=== PATIENT | female | born 1960 | race Caucasian/White ===

== ENCOUNTER 2020-09-18 06:31 | Observation (INO) ==
[2020-09-18] MEDS ORDERED: *HR* OxyCODONE Immed Rel 5 MG TABLET PO PRN (06:44)
[2020-09-18] MEDS ORDERED: Ondansetron 4 MG/2 ML VIAL IVP PRN ×2 (06:44→12:55)
[2020-09-18] MEDS ORDERED: Acetaminophen IV 1,000 MG/100 ML BAG IVPB PRN (06:44)
[2020-09-18] MEDS ORDERED: Ringers Solution, Lactated 1,000 ML IVC SCH ×2 (06:45→12:55)
[2020-09-18] MEDS ORDERED: *HR* Midazolam HCl 2 MG/2 ML VIAL ONE (07:07)
[2020-09-18] MEDS ORDERED: *HR* Propofol 200 MG/20 ML VIAL IVP ONE ×2 (07:07→09:23)
[2020-09-18] MEDS ORDERED: *HR* FentaNYL (PF) 100 MCG/2 ML VIAL ONE (07:07)
[2020-09-18] MEDS ORDERED: Lidocaine -MPF 2% 2 ML VIAL ONE (07:08)
[2020-09-18] MEDS ORDERED: *HR* Rocuronium Bromide 50 MG/5 ML VIAL ONE (07:08)
[2020-09-18] MEDS ORDERED: CeFAZolin Syr 2,000MG/20 ML 2,000 MG/20 ML SYRINGE IVPB ONE (07:10)
[2020-09-18] MEDS ORDERED: *HR* Remifentanil 1 MG VIAL IVP ONE ×2 (07:11→09:45)
[2020-09-18] MEDS ORDERED: *HR* Phenylephrine 10 MG/ML VIAL ONE (07:15)
[2020-09-18] MEDS ORDERED: 0.9 % Sodium Chloride 500 ML IVC SCH (07:15)
[2020-09-18] MEDS ORDERED: Bacitracin 50,000 UNIT, Polymyxin B Sulfate 500,000 UNIT, Sodium Chloride IRRigation 1,... IR ONE (07:45)
[2020-09-18] MEDS ORDERED: Sugammadex Sodium 200 MG/2 ML VIAL IV ONE (09:11)
[2020-09-18] MEDS ORDERED: Ondansetron 4 MG/2 ML VIAL ONE (10:14)
[2020-09-18] MEDS: *HR* HYDROmorphone PF 0.5 MG/0.5 ML SYRINGE IVP PRN ×8 (11:22→12:15)
[2020-09-18] MEDS ORDERED: Naloxone 0.4 MG/ML INJ IVP PRN (12:55)
[2020-09-18] MEDS: *HR* OxyCODONE Immed Rel 5 MG TABLET PO PRN (15:39)
[2020-09-18] MEDS: CeFAZolin 2 GM/120 ML BAG IVPB SCH (15:40)
[2020-09-18] MEDS: *HR* HYDROcodone/Acet 5/325 mg TABLET PO PRN (17:11)
[2020-09-18] MEDS: tiZANidine 4 MG TABLET PO PRN (17:11)
[2020-09-18] MEDS: Acetaminophen 325 MG TABLET PO PRN (22:31)
[2020-09-19] MEDS: CeFAZolin 2 GM/120 ML BAG IVPB SCH (00:10)
[2020-09-19] MEDS: *HR* HYDROcodone/Acet 5/325 mg TABLET PO PRN ×4 (00:10→22:42)
[2020-09-19] MEDS: Cholecalciferol (D-3) 1,000 UNIT (25MCG) TABLET PO SCH (08:18)
[2020-09-19] MEDS: BuPROPion XL (24 HR) 150 MG TABLET PO SCH (08:18)
[2020-09-19] MEDS: amLODIPine 5 MG TABLET PO SCH (08:19)
[2020-09-19] MEDS: lisinopriL 20 MG TABLET PO SCH (08:19)
[2020-09-19] MEDS: allopurinoL 300 MG TABLET PO SCH (08:19)
[2020-09-19] MEDS: *HR* OxyCODONE Immed Rel 5 MG TABLET PO PRN ×2 (10:56→21:32)
[2020-09-19] MEDS: tiZANidine 4 MG TABLET PO PRN ×2 (14:11→22:41)
[2020-09-19] MEDS ORDERED: 0.9 % Sodium Chloride 500 ML IVC ONE (14:53)
[2020-09-19] MEDS ORDERED: 0.9 % Sodium Chloride 500 ML ONE (14:55)
[2020-09-19] MEDS ORDERED: 0.9 % Sodium Chloride 1,000 ML IVC ONE (14:57)
[2020-09-19] MEDS ORDERED: 0.9 % Sodium Chloride 1,000 ML ONE (14:57)
[2020-09-19] MEDS ORDERED: 0.9 % Sodium Chloride 1,000 ML IVC SCH (15:00)
[2020-09-19 15:50] LABS: Basophils % 0.3 %; Eosinophils # 0.5 K/mcL (0.0-0.6); Eosinophils % 4.4 %; Hematocrit 32.3 % (35.3-44.9); Hemoglobin 10.5 g/dL (11.5-15.4); Immature Granulocytes % 0.3 % (0-4); Lymphocytes # 1.4 K/mcL (0.6-4.6); Lymphocytes % 13.1 %; Mean Corpuscular HGB Conc 32.5 g/dL (31.6-35.5); Mean Corpuscular Hemoglobin 32.8 pg (28.0-33.3); Mean Corpuscular Volume 100.9 fL (83.0-100.0); Mean Platelet Volume 9.7 fL (9.4-12.4); Monocytes # 0.5 K/mcL (0.0-1.3); Monocytes % 4.4 %; Neutrophils # 8.4 K/mcL (1.6-8.9); Platelet Count 200 K/mcL (140-400); Red Cell Distribution Width 12.8 % (11.5-14.5); Segmented Neutrophils % 77.5 %; White Blood Count 10.8 K/mcL (4.3-11.1)
[2020-09-19 16:22] LABS: Calcium 8.1 mg/dL (8.6-10.3); Potassium 3.4 mEq/L (3.5-5.1)
[2020-09-19] MEDS: 0.9 % Sodium Chloride 1,000 ML IVC SCH (22:45)
[2020-09-20] MEDS: Acetaminophen 325 MG TABLET PO PRN (03:14)
[2020-09-20] MEDS: *HR* OxyCODONE Immed Rel 5 MG TABLET PO PRN ×3 (03:14→18:30)
[2020-09-20 04:20] LABS: Basophils % 0.3 %; Eosinophils # 0.8 K/mcL (0.0-0.6); Eosinophils % 6.8 %; Hematocrit 33.9 % (35.3-44.9); Hemoglobin 10.9 g/dL (11.5-15.4); Immature Granulocytes % 0.5 % (0-4); Lymphocytes # 1.9 K/mcL (0.6-4.6); Lymphocytes % 16.1 %; Mean Corpuscular HGB Conc 32.2 g/dL (31.6-35.5); Mean Corpuscular Hemoglobin 32.1 pg (28.0-33.3); Mean Corpuscular Volume 99.7 fL (83.0-100.0); Mean Platelet Volume 10.2 fL (9.4-12.4); Monocytes # 0.6 K/mcL (0.0-1.3); Neutrophils # 8.3 K/mcL (1.6-8.9); Platelet Count 217 K/mcL (140-400); Red Cell Distribution Width 12.9 % (11.5-14.5); Segmented Neutrophils % 71.3 %; White Blood Count 11.6 K/mcL (4.3-11.1)
[2020-09-20 04:25] LABS: Calcium 8.5 mg/dL (8.6-10.3); Potassium 3.9 mEq/L (3.5-5.1)
[2020-09-20] MEDS ORDERED: Perflutren Lipid Microsphere 1.3 ML in 0.9 % Sodium Chloride 8.7 ML IVP PRN (04:36)
[2020-09-20] MEDS: *HR* HYDROcodone/Acet 5/325 mg TABLET PO PRN ×2 (06:16→20:14)
[2020-09-20] MEDS: 0.9 % Sodium Chloride 1,000 ML IVC SCH ×3 (07:22→20:49)
[2020-09-20] MEDS: BuPROPion XL (24 HR) 150 MG TABLET PO SCH (08:47)
[2020-09-20] MEDS: Cholecalciferol (D-3) 1,000 UNIT (25MCG) TABLET PO SCH (08:47)
[2020-09-20] MEDS: allopurinoL 300 MG TABLET PO SCH (09:19)
[2020-09-20] MEDS: amLODIPine 5 MG TABLET PO SCH (09:19)
[2020-09-20] MEDS: lisinopriL 20 MG TABLET PO SCH (09:19)
[2020-09-20] MEDS ORDERED: 0.9 % Sodium Chloride 1,000 ML IV ONE (09:37)
[2020-09-20] MEDS ORDERED: Isovue-370 500 ML BOTTLE IVP ONE (11:05)
[2020-09-21] MEDS: *HR* OxyCODONE Immed Rel 5 MG TABLET PO PRN ×3 (01:09→11:47)
[2020-09-21] MEDS: tiZANidine 4 MG TABLET PO PRN (01:09)
[2020-09-21] MEDS: Cholecalciferol (D-3) 1,000 UNIT (25MCG) TABLET PO SCH (09:45)
[2020-09-21] MEDS: allopurinoL 300 MG TABLET PO SCH (09:45)
[2020-09-21] MEDS: BuPROPion XL (24 HR) 150 MG TABLET PO SCH (09:45)
[2020-09-21 11:38] VITALS: BP 141/82
[2020-09-21] MEDS: lisinopriL 20 MG TABLET PO SCH (14:16)
== END 2020-09-21 14:34 | disposition home health service (06) ==
LOC: SAMDAY 06:31 → 3NENU 06:31 → SUATTDRO 09-19 16:17
PROVIDERS: ADMIT Orthopaedic Surgery Orthopaedic Surgery of the Spine; ATTEND Orthopaedic Surgery Orthopaedic Surgery of the Spine

== ENCOUNTER 2020-10-02 19:39 | Inpatient (IN) ==
[2020-10-02] MEDS ORDERED: Isovue-370 500 ML BOTTLE IVP ONE (21:31)
[2020-10-02] MEDS ORDERED: Piperacillin/Tazobactam 3.375 GM in 0.9 % Sodium Chloride Mini Bag 100 ML IVPB ONE (21:42)
[2020-10-02] MEDS ORDERED: Vancomycin 1,500 MG/265 ML IV.SOLN IVPB ONE (21:42)
[2020-10-02 22:12] LABS: Basophils # 0.1 K/mcL (0.0-0.2); Basophils % 0.5 %; Eosinophils # 0.8 K/mcL (0.0-0.6); Eosinophils % 4.8 %; Hematocrit 35.3 % (35.3-44.9); Hemoglobin 11.5 g/dL (11.5-15.4); Immature Granulocytes % 0.5 % (0-4); Mean Corpuscular HGB Conc 32.6 g/dL (31.6-35.5); Mean Corpuscular Hemoglobin 31.5 pg (28.0-33.3); Mean Corpuscular Volume 96.7 fL (83.0-100.0); Mean Platelet Volume 9.1 fL (9.4-12.4); Monocytes # 0.7 K/mcL (0.0-1.3); Monocytes % 4.3 %; Neutrophils # 14.4 K/mcL (1.6-8.9); Platelet Count 312 K/mcL (140-400); Red Blood Count 3.65 M/mcL (3.82-4.97); Red Cell Distribution Width 12.9 % (11.5-14.5); Segmented Neutrophils % 83.9 %; White Blood Count 17.1 K/mcL (4.3-11.1)
[2020-10-02 22:31] LABS: Calcium 9.1 mg/dL (8.6-10.3); Potassium 4.1 mEq/L (3.5-5.1)
[2020-10-02] MEDS ORDERED: *HR* FentaNYL (PF) 100 MCG/2 ML VIAL IVP ONE (22:41)
[2020-10-03] MEDS ORDERED: *HR* FentaNYL (PF) 100 MCG/2 ML VIAL IVP ONE (01:35)
[2020-10-03] MEDS ORDERED: Naloxone 0.4 MG/ML INJ IVP PRN (04:23)
[2020-10-03] MEDS ORDERED: Melatonin 3 MG TABLET PO PRN (04:23)
[2020-10-03] MEDS ORDERED: Ondansetron 4 MG/2 ML VIAL IVP PRN (04:23)
[2020-10-03] MEDS ORDERED: traZODone 50 MG TABLET PO ONE (04:45)
[2020-10-03] MEDS ORDERED: 0.9 % Sodium Chloride 1,000 ML IVC ONE (04:50)
[2020-10-03 05:02] LABS: Hematocrit 35.5 % (35.3-44.9); Hemoglobin 12.1 g/dL (11.5-15.4); Mean Corpuscular HGB Conc 34.1 g/dL (31.6-35.5); Mean Corpuscular Hemoglobin 32.4 pg (28.0-33.3); Mean Corpuscular Volume 95.2 fL (83.0-100.0); Mean Platelet Volume 9.4 fL (9.4-12.4); Platelet Count 305 K/mcL (140-400); Red Blood Count 3.73 M/mcL (3.82-4.97); Red Cell Distribution Width 12.9 % (11.5-14.5); White Blood Count 14.9 K/mcL (4.3-11.1)
[2020-10-03 05:25] LABS: Calcium 9.1 mg/dL (8.6-10.3); Potassium 3.9 mEq/L (3.5-5.1)
[2020-10-03 05:44] LABS: Bacteria,Urine Few per hpf (None-Few); Bilirubin,Urine Negative (Negative); Blood,Urine Negative (Negative); Clarity,Urine Clear (Clear); Color,Urine Light-Yellow (Yellow); Glucose,Urine (UA) Normal (Normal); Ketones,Urine Negative (Negative); Leukocyte Esterase,Urine Trace (Negative); Mucus,Urine Few per lpf (None-Few); Nitrite,Urine Negative (Negative); Protein,Urine 30 mg/dL (Neg-Trace); RBC,Urine 0-3 per hpf (0-3); Specific Gravity,Urine 1.022 (1.010-1.025); Squamous Epithelial Cell,Urine Few per hpf (None-Few); Urobilinogen,Urine Normal (Normal)
[2020-10-03] MEDS ORDERED: tiZANidine 4 MG TABLET PO PRN (08:21)
[2020-10-03] MEDS: BuPROPion XL (24 HR) 150 MG TABLET PO SCH (09:34)
[2020-10-03] MEDS: lisinopriL 20 MG TABLET PO SCH (09:34)
[2020-10-03] MEDS: Gabapentin 300 MG CAPSULE PO SCH ×3 (09:34→21:56)
[2020-10-03] MEDS: Piperacillin/Tazobactam 3.375 GM in 0.9 % Sodium Chloride Mini Bag 100 ML IVPB SCH ×2 (09:35→16:04)
[2020-10-03] MEDS: 0.9 % Sodium Chloride 1,000 ML IVC SCH (15:38)
[2020-10-03 15:53] LABS: Acinetobacter baumannii by PCR Not Detected (Not Detect); Enterobacter cloacae Cmplx PCR Not Detected (Not Detect); Enterobacteriaceae by PCR Not Detected (Not Detect); Enterococcus by PCR Not Detected (Not Detect); Escherichia coli by PCR Not Detected (Not Detect); Klebsiella oxytoca by PCR Not Detected (Not Detect); Klebsiella pneumoniae by PCR Not Detected (Not Detect); Staphylococcus aureus by PCR DETECTED (Not Detect); Streptococcus agalactiae(B)PCR Not Detected (Not Detect); Streptococcus by PCR Not Detected (Not Detect); Streptococcus pneumoniae PCR Not Detected (Not Detect); Streptococcus pyogenes (A) PCR Not Detected (Not Detect); mecA Methicillin-Resist Gene DETECTED (Not Detect)
[2020-10-03 15:54] LABS: Proteus by PCR Not Detected (Not Detect); Serratia marcescens by PCR Not Detected (Not Detect)
[2020-10-03 15:55] LABS: Candida albicans by PCR Not Detected (Not Detect); Candida glabrata by PCR Not Detected (Not Detect); Candida krusei by PCR Not Detected (Not Detect); Candida parapsilosis by PCR Not Detected (Not Detect); Candida tropicalis by PCR Not Detected (Not Detect); Pseudomonas aeruginosa by PCR Not Detected (Not Detect)
[2020-10-03] MEDS: *HR* Heparin 5,000 UNIT/ML VIAL SQ SCH ×2 (16:00→21:57)
[2020-10-03] MEDS: Acetaminophen 325 MG TABLET PO PRN (16:28)
[2020-10-04] MEDS: Piperacillin/Tazobactam 3.375 GM in 0.9 % Sodium Chloride Mini Bag 100 ML IVPB SCH ×3 (00:15→17:33)
[2020-10-04] MEDS: 0.9 % Sodium Chloride 1,000 ML IVC SCH (01:38)
[2020-10-04 01:43] LABS: Basophils # 0.1 K/mcL (0.0-0.2); Basophils % 0.5 %; Eosinophils # 0.5 K/mcL (0.0-0.6); Eosinophils % 5.8 %; Hematocrit 32.4 % (35.3-44.9); Immature Granulocytes % 0.6 % (0-4); Lymphocytes % 11.2 %; Mean Corpuscular HGB Conc 32.1 g/dL (31.6-35.5); Mean Corpuscular Hemoglobin 31.9 pg (28.0-33.3); Mean Corpuscular Volume 99.4 fL (83.0-100.0); Mean Platelet Volume 9.2 fL (9.4-12.4); Monocytes # 0.5 K/mcL (0.0-1.3); Monocytes % 5.4 %; Neutrophils # 7.1 K/mcL (1.6-8.9); Platelet Count 273 K/mcL (140-400); Red Blood Count 3.26 M/mcL (3.82-4.97); Segmented Neutrophils % 76.5 %; White Blood Count 9.3 K/mcL (4.3-11.1)
[2020-10-04 01:45] LABS: Hemoglobin 10.4 g/dL (11.5-15.4)
[2020-10-04 02:05] LABS: Calcium 8.2 mg/dL (8.6-10.3)
[2020-10-04] MEDS: Acetaminophen 325 MG TABLET PO PRN (03:22)
[2020-10-04] MEDS: *HR* Heparin 5,000 UNIT/ML VIAL SQ SCH ×2 (05:46→13:19)
[2020-10-04] MEDS: lisinopriL 20 MG TABLET PO SCH (08:04)
[2020-10-04] MEDS: Gabapentin 300 MG CAPSULE PO SCH ×2 (08:04→15:51)
[2020-10-04] MEDS: BuPROPion XL (24 HR) 150 MG TABLET PO SCH (08:04)
[2020-10-04 12:29] LABS: Influenza A PCR Negative (Negative); Influenza B PCR Negative (Negative); Resp. Syncytial Virus PCR Negative (Negative); SARS-CoV-2 by PCR (In House) Negative (Negative)
[2020-10-04] MEDS ORDERED: *HR* FentaNYL (PF) 100 MCG/2 ML VIAL ONE (13:43)
[2020-10-04] MEDS ORDERED: *HR* Midazolam HCl 2 MG/2 ML VIAL ONE (13:44)
[2020-10-04] MEDS ORDERED: *HR* Propofol 200 MG/20 ML VIAL IVP ONE (13:45)
[2020-10-04] MEDS ORDERED: Lidocaine -MPF 2% 2 ML VIAL ONE (13:47)
[2020-10-04] MEDS ORDERED: Ondansetron 4 MG/2 ML VIAL ONE (13:47)
[2020-10-04] MEDS ORDERED: Lidocaine HCL 4 ML Topical Solution (Laryng-O-Jet Kit Sterile Pak) TP ONE (13:49)
[2020-10-04] MEDS ORDERED: *HR* Rocuronium Bromide 50 MG/5 ML VIAL ONE (13:52)
[2020-10-04] MEDS ORDERED: Vancomycin 1,000 MG VIAL ONE (13:53)
[2020-10-04] MEDS ORDERED: Bacitracin 50,000 UNIT, Polymyxin B Sulfate 500,000 UNIT, Sodium Chloride IRRigation 1,... IR ONE (14:00)
[2020-10-04] MEDS ORDERED: Acetaminophen IV 1,000 MG/100 ML BAG IVPB ONE (14:13)
[2020-10-04] MEDS ORDERED: Albuterol 2.5 MG/3 ML NEBULIZER IH PRN (14:13)
[2020-10-04] MEDS ORDERED: *HR* Meperidine 25 MG/ML SYRINGE IVP PRN (14:13)
[2020-10-04] MEDS ORDERED: *HR* HYDROmorphone PF 0.5 MG/0.5 ML SYRINGE IVP PRN (14:13)
[2020-10-04] MEDS ORDERED: Ondansetron 4 MG/2 ML VIAL IVP PRN ×2 (14:13→17:05)
[2020-10-04] MEDS ORDERED: *HR* HYDROMORPHONE 2 MG/ML VIAL ONE (14:35)
[2020-10-04] MEDS ORDERED: Naloxone 0.4 MG/ML INJ IVP PRN (17:05)
[2020-10-04] MEDS ORDERED: Ringers Solution, Lactated 1,000 ML IVC SCH (17:05)
[2020-10-04] MEDS ORDERED: *HR* OxyCODONE/APAP 10/325 TABLET PO PRN (17:05)
[2020-10-04] MEDS ORDERED: Gabapentin 300 MG CAPSULE PO ONE (21:00)
[2020-10-04] MEDS ORDERED: traZODone 50 MG TABLET PO ONE (21:01)
[2020-10-04] MEDS: *HR* OxyCODONE Immed Rel 5 MG TABLET PO PRN (22:04)
[2020-10-05] MEDS: *HR* OxyCODONE Immed Rel 5 MG TABLET PO PRN ×4 (02:04→23:33)
[2020-10-05 07:10] LABS: Basophils % 0.2 %; Eosinophils % 0.1 %; Hematocrit 31.5 % (35.3-44.9); Hemoglobin 10.7 g/dL (11.5-15.4); Immature Granulocytes % 0.6 % (0-4); Lymphocytes # 0.9 K/mcL (0.6-4.6); Lymphocytes % 10.8 %; Mean Corpuscular Hemoglobin 32.3 pg (28.0-33.3); Mean Corpuscular Volume 95.2 fL (83.0-100.0); Mean Platelet Volume 9.4 fL (9.4-12.4); Monocytes # 0.6 K/mcL (0.0-1.3); Monocytes % 6.7 %; Neutrophils # 6.9 K/mcL (1.6-8.9); Platelet Count 340 K/mcL (140-400); Red Blood Count 3.31 M/mcL (3.82-4.97); Red Cell Distribution Width 12.4 % (11.5-14.5); Segmented Neutrophils % 81.6 %; White Blood Count 8.5 K/mcL (4.3-11.1)
[2020-10-05 07:25] LABS: BUN/Creatinine Ratio 15 (6-26); Blood Urea Nitrogen 13 mg/dL (8-23); Calcium 9.5 mg/dL (8.6-10.3); Carbon Dioxide 28 mEq/L (23-29); Chloride 105 mEq/L (98-107); Glucose 134 mg/dL (70-105); Osmolality,Calculated 290 (280-300); Potassium 4.4 mEq/L (3.5-5.1); Sodium 139 mEq/L (136-145); eGFR For African Americans > 60 (> 60); eGFR For Non-African Americans > 60 (> 60)
[2020-10-05] MEDS: allopurinoL 300 MG TABLET PO SCH (08:08)
[2020-10-05] MEDS: FLUoxetine 20 MG CAPSULE PO SCH (08:08)
[2020-10-05] MEDS: Cholecalciferol (D-3) 1,000 UNIT (25MCG) TABLET PO SCH (08:08)
[2020-10-05] MEDS ORDERED: Aspirin Enteric Coated 81 MG Tablet PO SCH (09:00)
[2020-10-05] MEDS ORDERED: lisinopriL 20 MG TABLET PO SCH (09:00)
[2020-10-05] MEDS: BuPROPion XL (24 HR) 150 MG TABLET PO SCH (11:10)
[2020-10-05] MEDS: tiZANidine 4 MG TABLET PO SCH ×3 (11:10→22:00)
[2020-10-05] MEDS: Gabapentin 300 MG CAPSULE PO SCH ×3 (11:10→22:00)
[2020-10-05] MEDS ORDERED: Isovue-370 500 ML BOTTLE IVP ONE (12:48)
[2020-10-05] MEDS ORDERED: traZODone 50 MG TABLET PO ONE (23:26)
[2020-10-06] MEDS: *HR* OxyCODONE Immed Rel 5 MG TABLET PO PRN ×5 (05:38→23:44)
[2020-10-06 07:06] LABS: Basophils # 0.1 K/mcL (0.0-0.2); Basophils % 1.1 %; Eosinophils # 0.7 K/mcL (0.0-0.6); Eosinophils % 6.6 %; Hematocrit 32.9 % (35.3-44.9); Hemoglobin 11.1 g/dL (11.5-15.4); Immature Granulocytes % 0.6 % (0-4); Lymphocytes # 3.1 K/mcL (0.6-4.6); Lymphocytes % 30.7 %; Mean Corpuscular HGB Conc 33.7 g/dL (31.6-35.5); Mean Corpuscular Volume 94.8 fL (83.0-100.0); Mean Platelet Volume 9.4 fL (9.4-12.4); Monocytes # 0.9 K/mcL (0.0-1.3); Monocytes % 8.5 %; Neutrophils # 5.3 K/mcL (1.6-8.9); Platelet Count 395 K/mcL (140-400); Red Blood Count 3.47 M/mcL (3.82-4.97); Red Cell Distribution Width 12.6 % (11.5-14.5); Segmented Neutrophils % 52.5 %; White Blood Count 10.1 K/mcL (4.3-11.1)
[2020-10-06 07:21] LABS: Calcium 9.5 mg/dL (8.6-10.3); Potassium 3.7 mEq/L (3.5-5.1)
[2020-10-06] MEDS ORDERED: Perflutren Lipid Microsphere 1.3 ML in 0.9 % Sodium Chloride 8.7 ML IVP PRN (09:04)
[2020-10-06] MEDS: Cholecalciferol (D-3) 1,000 UNIT (25MCG) TABLET PO SCH (10:45)
[2020-10-06] MEDS: FLUoxetine 20 MG CAPSULE PO SCH (10:46)
[2020-10-06] MEDS: Aspirin 81 MG TAB.CHEW PO SCH (10:46)
[2020-10-06] MEDS: BuPROPion XL (24 HR) 150 MG TABLET PO SCH (10:46)
[2020-10-06] MEDS: Gabapentin 300 MG CAPSULE PO SCH ×3 (10:46→19:44)
[2020-10-06] MEDS: tiZANidine 4 MG TABLET PO SCH ×3 (10:46→19:44)
[2020-10-06] MEDS: allopurinoL 300 MG TABLET PO SCH (10:49)
[2020-10-06] MEDS ORDERED: Ringers Solution, Lactated 500 ML IVC SCH (19:45)
[2020-10-07 02:24] LABS: Basophils # 0.1 K/mcL (0.0-0.2); Basophils % 0.9 %; Eosinophils # 0.7 K/mcL (0.0-0.6); Eosinophils % 6.3 %; Hematocrit 31.7 % (35.3-44.9); Hemoglobin 10.6 g/dL (11.5-15.4); Immature Granulocytes % 1.2 % (0-4); Lymphocytes # 3.3 K/mcL (0.6-4.6); Lymphocytes % 30.1 %; Mean Corpuscular HGB Conc 33.4 g/dL (31.6-35.5); Mean Corpuscular Hemoglobin 31.6 pg (28.0-33.3); Mean Corpuscular Volume 94.6 fL (83.0-100.0); Mean Platelet Volume 8.8 fL (9.4-12.4); Monocytes % 9.2 %; Neutrophils # 5.8 K/mcL (1.6-8.9); Platelet Count 388 K/mcL (140-400); Red Blood Count 3.35 M/mcL (3.82-4.97); Red Cell Distribution Width 12.7 % (11.5-14.5); Segmented Neutrophils % 52.3 %; White Blood Count 11.1 K/mcL (4.3-11.1)
[2020-10-07] MEDS: *HR* HYDROcodone/Acet 5/325 mg TABLET PO PRN ×2 (02:44→18:59)
[2020-10-07 02:47] LABS: BUN/Creatinine Ratio 21 (6-26); Blood Urea Nitrogen 22 mg/dL (8-23); C-Reactive Protein 84 mg/L (Less than 10); Carbon Dioxide 27 mEq/L (23-29); Chloride 100 mEq/L (98-107); Glucose 129 mg/dL (70-105); Osmolality,Calculated 285 (280-300); Potassium 4.1 mEq/L (3.5-5.1); Sodium 135 mEq/L (136-145); eGFR For African Americans > 60 (> 60); eGFR For Non-African Americans 53 (> 60)
[2020-10-07] MEDS: *HR* OxyCODONE Immed Rel 5 MG TABLET PO PRN ×3 (04:55→16:03)
[2020-10-07] MEDS: Acetaminophen 325 MG TABLET PO PRN (04:55)
[2020-10-07] MEDS: allopurinoL 300 MG TABLET PO SCH (07:44)
[2020-10-07] MEDS: FLUoxetine 20 MG CAPSULE PO SCH (07:44)
[2020-10-07] MEDS: tiZANidine 4 MG TABLET PO SCH ×3 (07:44→19:55)
[2020-10-07] MEDS: Cholecalciferol (D-3) 1,000 UNIT (25MCG) TABLET PO SCH (07:44)
[2020-10-07] MEDS: BuPROPion XL (24 HR) 150 MG TABLET PO SCH (07:44)
[2020-10-07] MEDS: Gabapentin 300 MG CAPSULE PO SCH ×3 (07:44→19:54)
[2020-10-07] MEDS: Aspirin 81 MG TAB.CHEW PO SCH (07:44)
[2020-10-07] MEDS: Sennosides/Docusate Sodium TABLET PO SCH (19:54)
[2020-10-08] MEDS: *HR* HYDROcodone/Acet 5/325 mg TABLET PO PRN ×4 (02:55→22:17)
[2020-10-08 05:37] LABS: Basophils # 0.2 K/mcL (0.0-0.2); Basophils % 1.4 %; Eosinophils # 0.9 K/mcL (0.0-0.6); Eosinophils % 7.8 %; Hematocrit 32.5 % (35.3-44.9); Hemoglobin 10.5 g/dL (11.5-15.4); Immature Granulocytes % 1.9 % (0-4); Mean Corpuscular HGB Conc 32.3 g/dL (31.6-35.5); Mean Corpuscular Hemoglobin 31.3 pg (28.0-33.3); Mean Corpuscular Volume 96.7 fL (83.0-100.0); Mean Platelet Volume 9.2 fL (9.4-12.4); Monocytes # 0.8 K/mcL (0.0-1.3); Monocytes % 7.1 %; Neutrophils # 6.8 K/mcL (1.6-8.9); Platelet Count 432 K/mcL (140-400); Red Blood Count 3.36 M/mcL (3.82-4.97); Red Cell Distribution Width 12.8 % (11.5-14.5); Segmented Neutrophils % 56.8 %; White Blood Count 11.9 K/mcL (4.3-11.1)
[2020-10-08 06:02] LABS: BUN/Creatinine Ratio 21 (6-26); Blood Urea Nitrogen 21 mg/dL (8-23); Calcium 9.2 mg/dL (8.6-10.3); Carbon Dioxide 27 mEq/L (23-29); Chloride 101 mEq/L (98-107); Glucose 91 mg/dL (70-105); Osmolality,Calculated 285 (280-300); Potassium 4.5 mEq/L (3.5-5.1); Sodium 136 mEq/L (136-145); eGFR For African Americans > 60 (> 60); eGFR For Non-African Americans 57 (> 60)
[2020-10-08] MEDS: FLUoxetine 20 MG CAPSULE PO SCH (09:01)
[2020-10-08] MEDS: Cholecalciferol (D-3) 1,000 UNIT (25MCG) TABLET PO SCH (09:01)
[2020-10-08] MEDS: allopurinoL 300 MG TABLET PO SCH (09:01)
[2020-10-08] MEDS: Sennosides/Docusate Sodium TABLET PO SCH (09:02)
[2020-10-08] MEDS: BuPROPion XL (24 HR) 150 MG TABLET PO SCH (09:02)
[2020-10-08] MEDS: Gabapentin 300 MG CAPSULE PO SCH ×2 (09:02→15:22)
[2020-10-08] MEDS: tiZANidine 4 MG TABLET PO SCH ×2 (09:07→18:19)
[2020-10-08] MEDS: Aspirin 81 MG TAB.CHEW PO SCH (11:43)
[2020-10-08] MEDS: Acetaminophen 325 MG TABLET PO PRN (12:56)
[2020-10-08] MEDS ORDERED: *HR* Propofol 200 MG/20 ML VIAL IVP ONE ×2 (16:22→18:38)
[2020-10-08] MEDS ORDERED: *HR* FentaNYL (PF) 100 MCG/2 ML VIAL ONE ×2 (16:22→18:46)
[2020-10-08] MEDS ORDERED: Lidocaine -MPF 2% 2 ML VIAL ONE (16:22)
[2020-10-08] MEDS ORDERED: *HR* Succinylcholine 200 MG/10 ML VIAL IVP ONE (16:22)
[2020-10-08] MEDS ORDERED: Bacitracin 50,000 UNIT, Polymyxin B Sulfate 500,000 UNIT, Sodium Chloride IRRigation 1,... IR ONE (17:25)
[2020-10-08] MEDS ORDERED: Vancomycin 1,000 MG VIAL ONE (17:33)
[2020-10-08] MEDS ORDERED: Ondansetron 4 MG/2 ML VIAL ONE (18:21)
[2020-10-08] MEDS ORDERED: Ondansetron 4 MG/2 ML VIAL IVP PRN ×2 (18:31→20:53)
[2020-10-08] MEDS ORDERED: EPHEDrine 50 MG/ML VIAL ONE (18:43)
[2020-10-08] MEDS: *HR* HYDROmorphone PF 0.5 MG/0.5 ML SYRINGE IVP PRN ×4 (19:41→20:07)
[2020-10-08] MEDS ORDERED: Naloxone 0.4 MG/ML INJ IVP PRN (20:53)
[2020-10-08] MEDS ORDERED: Ringers Solution, Lactated 1,000 ML IVC SCH (20:53)
[2020-10-09] MEDS: *HR* OxyCODONE Immed Rel 5 MG TABLET PO PRN ×5 (01:13→23:16)
[2020-10-09 03:12] LABS: Vancomycin,Trough 21 mcg/mL (5-10)
[2020-10-09] MEDS: *HR* HYDROcodone/Acet 5/325 mg TABLET PO PRN ×3 (04:25→22:12)
[2020-10-09] MEDS: Acetaminophen 325 MG TABLET PO PRN ×2 (07:59→23:16)
[2020-10-09 08:27] LABS: eGFR For African Americans > 60 (> 60); eGFR For Non-African Americans 58 (> 60)
[2020-10-09] MEDS ORDERED: Nicotine 2 MG GUM BC PRN (09:31)
[2020-10-09] MEDS ORDERED: Ipratropium/Albuterol Neb 3 ML IH PRN (09:32)
[2020-10-09 10:26] LABS: Hematocrit 32.6 % (35.3-44.9); Hemoglobin 10.8 g/dL (11.5-15.4); Mean Corpuscular HGB Conc 33.1 g/dL (31.6-35.5); Mean Corpuscular Hemoglobin 31.8 pg (28.0-33.3); Mean Corpuscular Volume 95.9 fL (83.0-100.0); Mean Platelet Volume 8.9 fL (9.4-12.4); Platelet Count 504 K/mcL (140-400); Red Cell Distribution Width 12.6 % (11.5-14.5); White Blood Count 12.9 K/mcL (4.3-11.1)
[2020-10-09 10:48] LABS: BUN/Creatinine Ratio 19 (6-26); Blood Urea Nitrogen 20 mg/dL (8-23); Calcium 9.1 mg/dL (8.6-10.3); Carbon Dioxide 28 mEq/L (23-29); Chloride 101 mEq/L (98-107); Glucose 155 mg/dL (70-105); Magnesium 1.5 mg/dL (1.6-2.6); Osmolality,Calculated 292 (280-300); Phosphorous 2.4 mg/dL (2.7-4.5); Potassium 4.2 mEq/L (3.5-5.1); Sodium 138 mEq/L (136-145); eGFR For African Americans > 60 (> 60); eGFR For Non-African Americans 53 (> 60)
[2020-10-09] MEDS: tiZANidine 4 MG TABLET PO PRN ×2 (11:22→22:31)
[2020-10-09] MEDS: rOPINIRole 1 MG TABLET PO SCH ×3 (11:22→22:09)
[2020-10-09] MEDS ORDERED: Lidocaine -MPF 1% 5 ML AMPUL INFILT ONE (15:09)
[2020-10-09] MEDS: *HR* Heparin 5,000 UNIT/ML VIAL SQ SCH (18:12)
[2020-10-09] MEDS: Lactobacillus 1 EACH CAP.SPRINK PO SCH (22:09)
[2020-10-10] MEDS: *HR* OxyCODONE Immed Rel 5 MG TABLET PO PRN ×4 (03:42→20:30)
[2020-10-10] MEDS: *HR* HYDROcodone/Acet 5/325 mg TABLET PO PRN ×2 (05:07→17:33)
[2020-10-10] MEDS: *HR* Heparin 5,000 UNIT/ML VIAL SQ SCH ×2 (05:07→17:32)
[2020-10-10 05:44] LABS: Basophils # 0.1 K/mcL (0.0-0.2); Basophils % 0.9 %; Eosinophils # 0.8 K/mcL (0.0-0.6); Eosinophils % 7.8 %; Hematocrit 30.6 % (35.3-44.9); Hemoglobin 10.1 g/dL (11.5-15.4); Lymphocytes % 30.9 %; Mean Corpuscular Volume 96.8 fL (83.0-100.0); Monocytes # 0.7 K/mcL (0.0-1.3); Monocytes % 6.6 %; Neutrophils # 5.2 K/mcL (1.6-8.9); Platelet Count 497 K/mcL (140-400); Red Blood Count 3.16 M/mcL (3.82-4.97); Red Cell Distribution Width 12.8 % (11.5-14.5); Segmented Neutrophils % 52.8 %; White Blood Count 9.8 K/mcL (4.3-11.1)
[2020-10-10 06:17] LABS: % Iron Saturation 6 % (15-50); Alanine Aminotransferase 74 Units/L (7-52); Albumin 3.4 g/dL (3.5-5.7); Albumin/Globulin Ratio 1.1 (1.1-2.2); Alkaline Phosphatase 346 Units/L (34-104); Aspartate Amino Transferase 64 Units/L (13-39); BUN/Creatinine Ratio 16 (6-26); Bilirubin,Total 0.4 mg/dL (0.3-1.0); Blood Urea Nitrogen 14 mg/dL (8-23); Carbon Dioxide 30 mEq/L (23-29); Chloride 102 mEq/L (98-107); Globulin 3.1 g/dL (2.4-3.5); Glucose 93 mg/dL (70-105); Iron 16 mcg/dL (50-170); Magnesium 2.2 mg/dL (1.6-2.6); Osmolality,Calculated 288 (280-300); Phosphorous 3.9 mg/dL (2.7-4.5); Potassium 4.1 mEq/L (3.5-5.1); Sodium 139 mEq/L (136-145); Total Protein 6.5 g/dL (6.4-8.9); Transferrin 197 mg/dL (203-362); eGFR For African Americans > 60 (> 60); eGFR For Non-African Americans > 60 (> 60)
[2020-10-10 06:26] LABS: Ferritin 276 ng/mL (10-120)
[2020-10-10 06:30] LABS: Folate 15.8 ng/mL (3.0-16.0)
[2020-10-10] MEDS ORDERED: Melatonin 3 MG TABLET PO PRN (08:19)
[2020-10-10] MEDS ORDERED: Iron Sucrose Complex 400 MG in 0.9 % Sodium Chloride 250 ML IVPB ONE (08:19)
[2020-10-10] MEDS: Lactobacillus 1 EACH CAP.SPRINK PO SCH ×2 (08:49→20:27)
[2020-10-10] MEDS: Multivit/Ca/Min/Fe/FA 1 TAB TABLET PO SCH (08:50)
[2020-10-10] MEDS: rOPINIRole 1 MG TABLET PO SCH ×3 (08:50→20:27)
[2020-10-10] MEDS: tiZANidine 4 MG TABLET PO PRN ×2 (14:42→23:30)
[2020-10-10] MEDS: polyethylene glycoL 3350 17 GM POWD.PACK PO SCH (20:26)
[2020-10-10] MEDS: Sennosides/Docusate Sodium TABLET PO SCH (20:27)
[2020-10-11] MEDS: *HR* OxyCODONE Immed Rel 5 MG TABLET PO PRN ×3 (04:03→18:25)
[2020-10-11] MEDS: *HR* Heparin 5,000 UNIT/ML VIAL SQ SCH ×2 (05:11→18:04)
[2020-10-11 05:36] LABS: Basophils # 0.1 K/mcL (0.0-0.2); Eosinophils # 0.7 K/mcL (0.0-0.6); Eosinophils % 7.8 %; Hematocrit 31.3 % (35.3-44.9); Hemoglobin 10.3 g/dL (11.5-15.4); Immature Granulocytes % 1.4 % (0-4); Lymphocytes # 1.9 K/mcL (0.6-4.6); Lymphocytes % 19.6 %; Mean Corpuscular HGB Conc 32.9 g/dL (31.6-35.5); Mean Corpuscular Hemoglobin 31.7 pg (28.0-33.3); Mean Corpuscular Volume 96.3 fL (83.0-100.0); Mean Platelet Volume 9.2 fL (9.4-12.4); Monocytes # 0.6 K/mcL (0.0-1.3); Monocytes % 6.7 %; Neutrophils # 6.1 K/mcL (1.6-8.9); Platelet Count 520 K/mcL (140-400); Red Blood Count 3.25 M/mcL (3.82-4.97); Red Cell Distribution Width 12.6 % (11.5-14.5); Segmented Neutrophils % 63.5 %; White Blood Count 9.5 K/mcL (4.3-11.1)
[2020-10-11 05:55] LABS: Alanine Aminotransferase 68 Units/L (7-52); Albumin 3.4 g/dL (3.5-5.7); Alkaline Phosphatase 310 Units/L (34-104); Aspartate Amino Transferase 39 Units/L (13-39); BUN/Creatinine Ratio 15 (6-26); Bilirubin,Total 0.5 mg/dL (0.3-1.0); Blood Urea Nitrogen 14 mg/dL (8-23); Calcium 9.4 mg/dL (8.6-10.3); Carbon Dioxide 28 mEq/L (23-29); Chloride 99 mEq/L (98-107); Globulin 3.3 g/dL (2.4-3.5); Glucose 91 mg/dL (70-105); Magnesium 1.6 mg/dL (1.6-2.6); Osmolality,Calculated 282 (280-300); Phosphorous 4.1 mg/dL (2.7-4.5); Potassium 4.1 mEq/L (3.5-5.1); Sodium 136 mEq/L (136-145); Total Protein 6.7 g/dL (6.4-8.9); eGFR For African Americans > 60 (> 60); eGFR For Non-African Americans 60 (> 60)
[2020-10-11] MEDS: tiZANidine 4 MG TABLET PO PRN (06:30)
[2020-10-11] MEDS ORDERED: MOM Conc 10 ML UD.LIQ PO PRN (09:00)
[2020-10-11] MEDS: Lactobacillus 1 EACH CAP.SPRINK PO SCH (10:39)
[2020-10-11] MEDS: Sennosides/Docusate Sodium TABLET PO SCH (10:40)
[2020-10-11] MEDS: rOPINIRole 1 MG TABLET PO SCH ×2 (10:40→14:18)
[2020-10-11] MEDS: polyethylene glycoL 3350 17 GM POWD.PACK PO SCH (10:43)
[2020-10-11] MEDS: Multivit/Ca/Min/Fe/FA 1 TAB TABLET PO SCH (10:44)
[2020-10-11] MEDS: *HR* HYDROcodone/Acet 5/325 mg TABLET PO PRN (14:18)
[2020-10-11 16:50] VITALS: BP 124/76
== END 2020-10-11 19:49 | disposition home health service (06) | DRG 711 ==
LOC: EMEROOARM 19:39 → 3NENU 19:39 → SUATTDRO 10-03 03:01 → 3NENU 10-03 03:30 → SUATTDRO 10-04 14:15
PROVIDERS: ADMIT Internal Medicine; ATTEND Internal Medicine

== ENCOUNTER 2020-10-21 14:41 | Observation (INO) ==
[2020-10-21] MEDS ORDERED: Morphine Sulfate 2 MG/ML SYRINGE IVP STA (16:44)
[2020-10-21] MEDS ORDERED: Ondansetron 4 MG/2 ML VIAL IVP STA (16:44)
[2020-10-21] MEDS: 0.9 % Sodium Chloride 1,000 ML IVC SCH ×3 (17:28→22:50)
[2020-10-21 17:45] LABS: Basophils # 0.1 K/mcL (0.0-0.2); Basophils % 1.8 %; Eosinophils # 0.4 K/mcL (0.0-0.6); Eosinophils % 5.2 %; Hematocrit 32.3 % (35.3-44.9); Hemoglobin 10.1 g/dL (11.5-15.4); Immature Granulocytes % 0.6 % (0-4); Lymphocytes # 1.8 K/mcL (0.6-4.6); Lymphocytes % 26.4 %; Mean Corpuscular HGB Conc 31.3 g/dL (31.6-35.5); Mean Corpuscular Hemoglobin 30.8 pg (28.0-33.3); Mean Corpuscular Volume 98.5 fL (83.0-100.0); Mean Platelet Volume 9.3 fL (9.4-12.4); Monocytes # 0.6 K/mcL (0.0-1.3); Monocytes % 8.2 %; Neutrophils # 3.9 K/mcL (1.6-8.9); Platelet Count 431 K/mcL (140-400); Red Blood Count 3.28 M/mcL (3.82-4.97); Red Cell Distribution Width 12.9 % (11.5-14.5); Segmented Neutrophils % 57.8 %; White Blood Count 6.7 K/mcL (4.3-11.1)
[2020-10-21 18:01] LABS: Albumin 3.6 g/dL (3.5-5.7); Albumin/Globulin Ratio 0.9 (1.1-2.2); Bilirubin,Direct 0.5 mg/dL (0.0-0.2); Bilirubin,Indirect 0.5 mg/dL (0.0-1.0); Calcium 9.8 mg/dL (8.6-10.3); Globulin 3.8 g/dL (2.4-3.5); Potassium 3.6 mEq/L (3.5-5.1); Total Protein 7.4 g/dL (6.4-8.9)
[2020-10-21 19:58] LABS: Bilirubin,Urine Negative (Negative); Blood,Urine Negative (Negative); Clarity,Urine Clear (Clear); Color,Urine Dark-Yellow (Yellow); Glucose,Urine (UA) Normal (Normal); Ketones,Urine Negative (Negative); Leukocyte Esterase,Urine Negative (Negative); Nitrite,Urine Negative (Negative); Protein,Urine Trace mg/dL (Neg-Trace); Specific Gravity,Urine 1.014 (1.010-1.025); Urobilinogen,Urine Normal (Normal)
[2020-10-21] MEDS ORDERED: Ondansetron 4 MG/2 ML VIAL IVP PRN (20:27)
[2020-10-21] MEDS ORDERED: Naloxone 0.4 MG/ML INJ IVP PRN (20:27)
[2020-10-22] MEDS: Acetaminophen 325 MG TABLET PO PRN ×2 (03:23→11:08)
[2020-10-22 03:27] LABS: Basophils # 0.1 K/mcL (0.0-0.2); Basophils % 2.1 %; Eosinophils # 0.4 K/mcL (0.0-0.6); Hematocrit 30.5 % (35.3-44.9); Hemoglobin 9.6 g/dL (11.5-15.4); Immature Granulocytes % 0.3 % (0-4); Lymphocytes # 2.5 K/mcL (0.6-4.6); Lymphocytes % 39.8 %; Mean Corpuscular HGB Conc 31.5 g/dL (31.6-35.5); Mean Corpuscular Hemoglobin 30.9 pg (28.0-33.3); Mean Corpuscular Volume 98.1 fL (83.0-100.0); Mean Platelet Volume 9.2 fL (9.4-12.4); Monocytes # 0.7 K/mcL (0.0-1.3); Monocytes % 10.7 %; Neutrophils # 2.5 K/mcL (1.6-8.9); Platelet Count 426 K/mcL (140-400); Red Blood Count 3.11 M/mcL (3.82-4.97); Segmented Neutrophils % 41.1 %; White Blood Count 6.2 K/mcL (4.3-11.1)
[2020-10-22 03:34] LABS: INR 1.2; Prothrombin Time 13.7 Seconds (9.4-12.1)
[2020-10-22 03:44] LABS: Calcium 9.1 mg/dL (8.6-10.3); Magnesium 1.3 mg/dL (1.6-2.6)
[2020-10-22] MEDS ORDERED: *HR* Heparin 5,000 UNIT/ML VIAL SQ SCH (06:00)
[2020-10-22] MEDS: 0.9 % Sodium Chloride 1,000 ML IVC SCH (08:45)
[2020-10-22] MEDS ORDERED: DAPTOmycin 300 MG in 0.9 % Sodium Chloride 100 ML IVPB SCH (09:00)
[2020-10-22 12:04] LABS: Uric Acid 5.2 mg/dL (2.3-7.6)
[2020-10-22 13:39] LABS: Sodium, Urine 117.4 mEq/L
[2020-10-22] MEDS: *HR* OxyCODONE Immed Rel 5 MG TABLET PO PRN ×2 (16:42→21:44)
[2020-10-22] MEDS: Gabapentin 300 MG CAPSULE PO SCH (21:29)
[2020-10-22] MEDS: traZODone 50 MG TABLET PO PRN (21:37)
[2020-10-22] MEDS: tiZANidine 4 MG TABLET PO PRN (21:38)
[2020-10-22] MEDS: rifAMPin 150 MG CAPSULE PO SCH (21:38)
[2020-10-23] MEDS: 0.9 % Sodium Chloride 1,000 ML IVC SCH ×3 (03:03→13:15)
[2020-10-23] MEDS: *HR* OxyCODONE Immed Rel 5 MG TABLET PO PRN ×3 (04:34→20:43)
[2020-10-23 06:14] LABS: Basophils # 0.1 K/mcL (0.0-0.2); Basophils % 1.6 %; Eosinophils # 0.3 K/mcL (0.0-0.6); Eosinophils % 5.5 %; Hematocrit 31.1 % (35.3-44.9); Hemoglobin 10.1 g/dL (11.5-15.4); Immature Granulocytes % 0.3 % (0-4); Mean Corpuscular HGB Conc 32.5 g/dL (31.6-35.5); Mean Corpuscular Hemoglobin 31.2 pg (28.0-33.3); Mean Platelet Volume 9.1 fL (9.4-12.4); Monocytes # 0.5 K/mcL (0.0-1.3); Monocytes % 7.6 %; Neutrophils # 3.3 K/mcL (1.6-8.9); Platelet Count 430 K/mcL (140-400); Red Blood Count 3.24 M/mcL (3.82-4.97); Red Cell Distribution Width 12.8 % (11.5-14.5); White Blood Count 6.2 K/mcL (4.3-11.1)
[2020-10-23] MEDS: tiZANidine 4 MG TABLET PO PRN ×2 (06:39→23:09)
[2020-10-23 06:40] LABS: Albumin 3.5 g/dL (3.5-5.7); Bilirubin,Direct 0.2 mg/dL (0.0-0.2); Bilirubin,Indirect 0.2 mg/dL (0.0-1.0); Bilirubin,Total 0.4 mg/dL (0.3-1.0); Calcium 9.2 mg/dL (8.6-10.3); Globulin 3.5 g/dL (2.4-3.5); Magnesium 1.6 mg/dL (1.6-2.6); Potassium 3.7 mEq/L (3.5-5.1)
[2020-10-23 06:56] LABS: Folate 16.6 ng/mL (3.0-16.0)
[2020-10-23] MEDS: rifAMPin 150 MG CAPSULE PO SCH (09:29)
[2020-10-23] MEDS: BuPROPion XL (24 HR) 150 MG TABLET PO SCH (09:30)
[2020-10-23] MEDS: Cholecalciferol (D-3) 1,000 UNIT (25MCG) TABLET PO SCH (09:30)
[2020-10-23] MEDS: FLUoxetine 20 MG CAPSULE PO SCH (09:31)
[2020-10-23] MEDS: Gabapentin 300 MG CAPSULE PO SCH ×3 (09:31→20:42)
[2020-10-23] MEDS: allopurinoL 300 MG TABLET PO SCH (09:31)
[2020-10-23] MEDS: DAPTOmycin 300 MG in 0.9 % Sodium Chloride 100 ML IVPB SCH (13:14)
[2020-10-23] MEDS ORDERED: *HR* Alteplase (Cathflo) 2 MG VIAL IVP ONE (13:59)
[2020-10-23] MEDS: Acetaminophen 325 MG TABLET PO PRN (16:38)
[2020-10-23] MEDS ORDERED: amLODIPine 5 MG TABLET PO SCH (21:00)
[2020-10-23] MEDS: traZODone 50 MG TABLET PO PRN (23:09)
[2020-10-24] MEDS: 0.9 % Sodium Chloride 1,000 ML IVC SCH ×2 (02:48→14:35)
[2020-10-24 03:21] LABS: Basophils # 0.1 K/mcL (0.0-0.2); Basophils % 1.7 %; Eosinophils # 0.3 K/mcL (0.0-0.6); Eosinophils % 6.2 %; Hematocrit 27.7 % (35.3-44.9); Hemoglobin 9.1 g/dL (11.5-15.4); Immature Granulocytes % 0.4 % (0-4); Lymphocytes # 2.3 K/mcL (0.6-4.6); Lymphocytes % 42.3 %; Mean Corpuscular HGB Conc 32.9 g/dL (31.6-35.5); Mean Corpuscular Hemoglobin 31.4 pg (28.0-33.3); Mean Corpuscular Volume 95.5 fL (83.0-100.0); Mean Platelet Volume 9.2 fL (9.4-12.4); Monocytes # 0.5 K/mcL (0.0-1.3); Neutrophils # 2.1 K/mcL (1.6-8.9); Platelet Count 353 K/mcL (140-400); Red Cell Distribution Width 12.7 % (11.5-14.5); Segmented Neutrophils % 39.4 %; White Blood Count 5.3 K/mcL (4.3-11.1)
[2020-10-24 03:50] LABS: Calcium 8.4 mg/dL (8.6-10.3); Magnesium 1.4 mg/dL (1.6-2.6); Potassium 4.1 mEq/L (3.5-5.1)
[2020-10-24] MEDS: rifAMPin 150 MG CAPSULE PO SCH ×2 (04:56→08:08)
[2020-10-24] MEDS: *HR* OxyCODONE Immed Rel 5 MG TABLET PO PRN ×2 (05:39→11:36)
[2020-10-24] MEDS: tiZANidine 4 MG TABLET PO PRN (05:40)
[2020-10-24] MEDS: BuPROPion XL (24 HR) 150 MG TABLET PO SCH (08:09)
[2020-10-24] MEDS: Gabapentin 300 MG CAPSULE PO SCH ×2 (08:09→14:14)
[2020-10-24] MEDS: allopurinoL 300 MG TABLET PO SCH (08:09)
[2020-10-24] MEDS: Cholecalciferol (D-3) 1,000 UNIT (25MCG) TABLET PO SCH (08:09)
[2020-10-24] MEDS: FLUoxetine 20 MG CAPSULE PO SCH (08:09)
[2020-10-24] MEDS: Acetaminophen 325 MG TABLET PO PRN ×2 (08:10→14:16)
[2020-10-24] MEDS: DAPTOmycin 300 MG in 0.9 % Sodium Chloride 100 ML IVPB SCH (10:23)
[2020-10-24] MEDS ORDERED: Acetaminophen/Aspirin/Caffeine TABLET PO ONE (14:49)
[2020-10-24 16:13] VITALS: BP 148/80
== END 2020-10-24 19:48 | disposition home health service (06) ==
LOC: 2ANU 14:41 → 3ANU 14:41 → EMEROOARM 14:41 → SUATTDRO 20:15 → 3ANU 21:30
PROVIDERS: ADMIT Internal Medicine; ATTEND Internal Medicine